=== PATIENT | male | born 1985 | race Caucasian/White ===

== ENCOUNTER 2017-07-03 16:27 | Emergency (ER) | payer MEDICAID ==
[~2017-07-03] VITALS: Ht 180.3 cm; Wt 59.0 kg
[2017-07-03 17:51] LABS: microscopic required? NO
[2017-07-03 18:13] LABS: UA SPECIFIC GRAVITY 1.015 (1.005-1.035); urine erythrocyte NEGATIVE (NEGATIVE)
[2017-07-03 21:01] VITALS: BP 136/71
== END 2017-07-03 21:01 | disposition left against medical advice (07) ==
LOC: ED 16:27
PROVIDERS: Emergency Medicine
DX: R10.32 Left lower quadrant pain (principal); F12.229 Cannabis dependence with intoxication, unspecified
CPT/HCPCS: J1885

== ENCOUNTER 2018-01-31 16:24 | Emergency (ER) | payer MEDICAID ==
[~2018-01-31] VITALS: Ht 180.3 cm; Wt 59.9 kg
[2018-01-31 16:28] VITALS: Ht 180.3 cm; Wt 59.9 kg
[2018-01-31 17:46] LABS: BASOPHIL % 0.5 % (0-2); PLATELET COUNT 259 x10^3mcL (130-400); RED CELL DISTRIBUTION WIDTH 13.1 % (11.5-14.5)
[2018-01-31 18:14] LABS: CALCIUM 9.4 mg/dL (8.5-10.1); CARBON DIOXIDE 27.7 mmol/L (21-32); CHLORIDE SERUM 104 mmol/L (98-107); GFR1 > 60 mL/min; GLUCOSE SERUM 102 mg/dL (74-106); POTASSIUM SERUM 3.7 mmol/L (3.5-5.1); SODIUM SERUM 141 mmol/L (136-145)
[2018-01-31 18:18] LABS: ALBUMIN 4.5 g/dL (3.4-5.0); ALKALINE PHOSPHATASE 65 U/L (46-116); ALT/SGPT 24 U/L (16-63); AST/SGOT 25 U/L (15-37); BILIRUBIN TOTAL 0.6 mg/dL (0.20-1.00); LIPASE 89 IU/L (73-393); TOTAL PROTEIN, SERUM 7.9 g/dL (6.4-8.2)
[2018-01-31 18:40] VITALS: BP 127/90
== END 2018-01-31 18:40 | disposition home or self-care (01) ==
LOC: ED 16:24
PROVIDERS: Emergency Medicine
DX: R10.32 Left lower quadrant pain (principal); M54.5 Low back pain; Z88.8 Allergy status to other drugs, medicaments and biological substances; Z87.19 Personal history of other diseases of the digestive system
CPT/HCPCS: G0480; J2270; J7030